=== PATIENT | female | born 1990 | race Caucasian/White ===

== ENCOUNTER 2023-09-19 00:21 | Emergency (ER) | payer OTHER, SELFPAY ==
[2023-09-19 00:26] VITALS: BP 115/78; PULSE 99; TEMP 36.9; O2SAT 99; BMI 100.8
--- NOTE | 2023-09-19 00:29 | ED_ITS ---
HPI - Skin/Abscess/Foreign Bdy General Chief complaint: Skin/Abscess/Foreign Body Stated complaint: RT FOOT POSS INSECT BITE Time Seen by Provider: 09/19/23 00:25 History of Present Illness HPI narrative: patient was at [facility] 4 days ago and was in the water. Developed focal area of irritation dorsum right foot. She now has superficial raised erythematous blister type lesion with red streak into her watts area and can feel pain into her thigh. Feels tired. No fever, nausea or vomiting. Related Data Home Medications ?Medication ?Instructions ?Recorded ?Confirmed No Known Home Medications 09/19/23 09/19/23 Allergies Allergy/AdvReac Type Severity Reaction Status Date / Time AMOXIL Allergy Swelling Uncoded 09/19/23 00:32 of Lip/Tongue/Throat Review of Systems 2 ROS0 Status of ROS 10 or more systems reviewed and unremark able except as noted in history and below Exam Constitutional Vital Signs, click to edit/add: Last Vital Signs Temp 98.4 F 09/19/23 00:26 Pulse 99 H 09/19/23 00:26 Resp 16 09/19/23 00:26 BP 115/78 09/19/23 00:26 Pulse Ox 99 09/19/23 00:26 O2 Del Method Room Air 09/19/23 00:26 Common normals: no apparent distress, average body habitus, oriented x3, no limitations, healthy appearing, alert and well nourished [facility] Common normals: normocephalic and head/scalp atraumatic Eye Common normals: EOMs intact bilaterally and conjunctivae normal Respiratory Common normals: normal respiratory effort, no retractions, no use of accessory muscles and clear to auscultation bilaterally Cardio Common normals: regular rate, regular rhythm, S1 normal heart sound and S2 normal heart sound GI Common normals: Normal to inspection, nondistended, normoactive bowel sounds present, soft to palpation and non-tender Extremity Common normals: full ROM Extremity image (front): 2 1. erythematous blood blister appearing lesion 2cm with red streak Neuro Common normals: oriented x3, CN's II-XII intact bilaterally, moves all extremities and no focal motor deficits Psych Appearance: grossly normal Course Vital Signs Vital signs: Vital Signs Temperature 98.4 F 09/19/23 00:26 Pulse Rate 99 H 09/19/23 00:26 Respiratory Rate 16 09/19/23 00:26 Blood Pressure 115/78 09/19/23 00:26 Pulse Oximetry 99 09/19/23 00:26 Oxygen Delivery Method Room Air 09/19/23 00:26 Temperature 98.4 F 09/19/23 00:26 Pulse Rate 99 H 09/19/23 00:26 Respiratory Rate 16 09/19/23 00:26 Blood Pressure 115/78 09/19/23 00:26 Pulse Oximetry 99 09/19/23 00:26 Oxygen Delivery Method Room Air 09/19/23 00:26 MDM - Skin/Abscess/Foreign Bdy MDM Narrative Medical decision making narrative: patient presents with what appears to be an insect bite dorsum left foot that occurred while she was in the beach at [facility] 4 days ago. Has raised blood blister lesion on the foot and red streak to the tibia. no fever. she does have leukocytosis. Treated with clindamycin and doxycycline and discharged and informed of the importance of close followup and to return if red streak advances despite her antibiotic treatment. Lab Data Labs: Lab Results 09/19/23 Range/Units 00:35 WBC 16.3 H (4.0-11.0) 10^3/uL RBC 4.30 (4.20-5.40) 10^6/uL Hgb 11.7 L (12.0-16.0) g/dL Hct 36.1 (36.0-48.0) % MCV 84.0 (81.0-99.0) fL MCH 27.2 (26.7-34.0) pg MCHC 32.4 (29.9-35.2) g/dL RDW 14.2 (11.0-15.0) % Plt Count 308 (150-450) 10^3/uL MPV 10.4 (9.5-13.5) fL Neut % (Auto) 77.2 H (43.0-75.0) % Lymph % (Auto) 14.9 L (20.5-60.0) % [place] % (Auto) 5.6 (1.7-12.0) % Eos % (Auto) 1.5 (0.9-7.0) % Baso % (Auto) 0.2 (0.2-2.0) % Neut # (Auto) 12.6 H (1.4-6.5) 10^3/uL Lymph # (Auto) 2.4 (1.2-3.8) 10^3/uL [place] # (Auto) 0.9 H (0.3-0.8) 10^3/uL Eos # (Auto) 0.2 (0.0-0.7) 10^3/uL Baso # (Auto) 0.0 (0.0-0.1) 10^3/uL Abs Immat Gran (auto) 0.10 H (0.00-0.03) 10^3/uL Imm/Tot Granulo (auto) 0.6 H (0.0-0.5) % Sodium 137 (136-145) mmol/L Potassium 3.6 (3.5-5.1) mmol/L Chloride 103 (98-107) mmol/L Carbon Dioxide 28.4 (21.0-32.0) mmol/L Anion Gap 9.2 BUN 9.0 (7.0-18.0) mg/dL Creatinine 0.82 (0.55-1.02) mg/dL Est GFR ( Amer) >60 (>=60) Est GFR (Non-Af Amer) >60 (>=60) BUN/Creatinine Ratio 11.0 Glucose 100 (74-106) mg/dL Lactate 1.5 (0.4-2.0) mmol/L Calcium 8.8 (8.5-10.1) mg/dL Discharge Plan Discharge Stand Alone Forms: Portal Instructions Chief Complaint: Skin/Abscess/Foreign Body Clinical Impression: Insect bites, Cellulitis Patient Disposition: Home, Self-Care Prescriptions / Home Meds: No Action No Known Home Medications Print Language: Slovenian Instructions: Cellulitis (ED), Insect Bite or Sting (ED) Additional Instructions: follow up with your doctor in 1-2 days for recheck. Return if red streak advances as discussed Referrals: Physician,Non-Staff, MD [Primary Care Provider] - 1 week
[2023-09-19 00:43] LABS: Basophils Percent Auto 0.2 % (0.2-2.0); Eosinophils Absolute Auto 0.2 10^3/uL (0.0-0.7); Eosinophils Percent Auto 1.5 % (0.9-7.0); Hematocrit 36.1 % (36.0-48.0); Hemoglobin 11.7 g/dL (12.0-16.0); Immature Granulocytes Pct Auto 0.6 % (0.0-0.5); Lymphocytes Absolute Auto 2.4 10^3/uL (1.2-3.8); Lymphocytes Percent Auto 14.9 % (20.5-60.0); Mean Corpuscular HGB Conc 32.4 g/dL (29.9-35.2); Mean Corpuscular Hemoglobin 27.2 pg (26.7-34.0); Mean Platelet Volume 10.4 fL (9.5-13.5); Monocytes Absolute Auto 0.9 10^3/uL (0.3-0.8); Monocytes Percent Auto 5.6 % (1.7-12.0); Neutrophils Absolute Auto 12.6 10^3/uL (1.4-6.5); Neutrophils Percent Auto 77.2 % (43.0-75.0); Platelet Count 308 10^3/uL (150-450); Red Cell Distribution Width 14.2 % (11.0-15.0); White Blood Count 16.3 10^3/uL (4.0-11.0)
[2023-09-19] MEDS: 0.9 % SODIUM CHLORIDE 1,000 ML 999 ML IV (00:46)
[2023-09-19] MEDS: DOXYCYCLINE MONOHYDRATE 100 MG CAPSULE PO ×2 (00:48→01:40)
[2023-09-19 00:50] LABS: Anion Gap 9.2; Calcium 8.8 mg/dL (8.5-10.1); Carbon Dioxide 28.4 mmol/L (21.0-32.0); Chloride 103 mmol/L (98-107); Estimated GFR (African America >60 (>=60); Estimated GFR (Non-African Ame >60 (>=60); Glucose 100 mg/dL (74-106); Potassium 3.6 mmol/L (3.5-5.1); Sodium 137 mmol/L (136-145)
[2023-09-19 00:59] LABS: Lactate/Lactic Acid 1.5 mmol/L (0.4-2.0)
[2023-09-19] MEDS: CLINDAMYCIN PHOSPHATE/D5W 900 MG/50 ML PIGGYBACK 100 MG IV (01:28)
[2023-09-19] MEDS: CLINDAMYCIN HCL 150 MG CAPSULE 300 MG PO (01:39)
== END 2023-09-19 01:53 | disposition home or self-care (01) ==
PROVIDERS: Emergency Provider Internal Medicine
DX: S90.862A Insect bite (nonvenomous), left foot, initial encounter (principal); L03.116 Cellulitis of left lower limb; W57.XXXA Bitten or stung by nonvenomous insect and other nonvenomous arthropods, initial encounter
CPT/HCPCS: 36415; 80048; 83605; 85025; 96374; 99284; J0736

== ENCOUNTER 2023-09-20 13:02 | Emergency (ER) | payer OTHER, SELFPAY ==
[2023-09-20 13:17] VITALS: BP 116/80; PULSE 107; TEMP 37.1; O2SAT 100; BMI 45.7
--- NOTE | 2023-09-20 13:30 | ED.SKABFB1 ---
HPI - Skin/Abscess/Foreign Bdy General Chief complaint: Skin/Abscess/Foreign Body Stated complaint: SPIDER BITE Time Seen by Provider: 09/20/23 13:23 Mode of arrival: walk-in History of Present Illness HPI narrative: Patient is a 33-year-old female who returns to the emergency department for continued Redness, swelling and drainage from the dorsum of the right foot. She was seen in this emergency department 2 days ago after a 4-day history of swelling and redness that she presumed was from an insect bite on the dorsum of the right foot. She was treated with IV antibiotics for red streaking that was going up the foot and leg at that time. She was prescribed clindamycin and doxycycline. She states her pharmacy was closed yesterday and she has not been able to get the prescriptions today so she has not started the outpatient prescriptions that she was given for antibiotic coverage. She states in the last day the opening of the dorsum of the foot in the center of the bite has opened with serosanguineous drainage. She has had no objective fevers or vomiting. She is not concerned for . Related Data Home Medications ?Medication ?Instructions ?Recorded ?Confirmed clindamycin HCl 300 mg capsule mg 09/20/23 doxycycline hyclate 100 mg capsule mg 09/20/23 Allergies Allergy/AdvReac Type Severity Reaction Status Date / Time AMOXIL Allergy Swelling Uncoded 09/19/23 00:32 of Lip/Tongue/Throat Review of Systems ROS Constitutional Denies: fever or chills Ears, nose, mouth, and throat Denies: throat pain Respiratory Denies: shortness of breath Gastrointestinal Denies: nausea or vomiting Musculoskeletal Denies: back pain Integumentary/Breast Reports: redness and skin pain; Denies: rash Hematologic/Lymphatic Denies: easy bruising or easy bleeding Exam Narrative Exam Narrative: Gen.: Awake, alert, in no distress Head: Normocephalic, atraumatic ENT: Moist mucous membranes Respiratory: No respiratory distress Extremities: Moves extremities equally, 2 cm raised/blistered area to the dorsum of the right foot that is open centrally with serosanguineous drainage. No purulence or fluctuance noted. 2 to 3 cm of surrounding blanching erythema. Faint red streaking noted to the dorsum of the foot to the ankle. Right calf is soft, nontender with no redness or induration Psych: Normal mood and affect Neuro: No focal neuro deficit Skin: Warm, dry Constitutional Vital Signs, click to edit/add: Last Vital Signs Temp 98.7 F 09/20/23 13:17 Pulse 107 H 09/20/23 13:17 Resp 20 09/20/23 13:17 BP 116/80 09/20/23 13:17 Pulse Ox 100 09/20/23 13:17 Course Vital Signs Vital signs: Vital Signs Temperature 98.7 F 09/20/23 13:17 Pulse Rate 107 H 09/20/23 13:17 Respiratory Rate 20 09/20/23 13:17 Blood Pressure 116/80 09/20/23 13:17 Pulse Oximetry 100 09/20/23 13:17 Temperature 98.7 F 09/20/23 13:17 Pulse Rate 107 H 09/20/23 13:17 Respiratory Rate 20 09/20/23 13:17 Blood Pressure 116/80 09/20/23 13:17 Pulse Oximetry 100 09/20/23 13:17 MDM - Skin/Abscess/Foreign Bdy MDM Narrative Medical decision making narrative: CRP and sed rates are still elevated, however white blood cell count has improved. Patient with no circumferential erythema, no calf swelling or redness. She was strongly encouraged to take the clindamycin and doxycycline that was prescribed. Regular wound care encouraged. Follow-up with PCP and return to the ER if symptoms change or worsen. IV clindamycin given in the ER as the patient has not had antibiotics for 2 days. Medical Records Attestation: I reviewed the patient's medical records. Lab Data Attestation: I reviewed the patient's lab results. Labs: Lab Results 09/20/23 Range/Units 13:40 WBC 12.3 H (4.0-11.0) 10^3/uL RBC 4.60 (4.20-5.40) 10^6/uL Hgb 12.4 (12.0-16.0) g/dL Hct 39.6 (36.0-48.0) % MCV 86.1 (81.0-99.0) fL MCH 27.0 (26.7-34.0) pg MCHC 31.3 (29.9-35.2) g/dL RDW 14.2 (11.0-15.0) % Plt Count 332 (150-450) 10^3/uL MPV 10.7 (9.5-13.5) fL Neut % (Auto) 75.6 H (43.0-75.0) % Lymph % (Auto) 17.7 L (20.5-60.0) % [place] % (Auto) 3.4 (1.7-12.0) % Eos % (Auto) 2.0 (0.9-7.0) % Baso % (Auto) 0.3 (0.2-2.0) % Neut # (Auto) 9.3 H (1.4-6.5) 10^3/uL Lymph # (Auto) 2.2 (1.2-3.8) 10^3/uL [place] # (Auto) 0.4 (0.3-0.8) 10^3/uL Eos # (Auto) 0.2 (0.0-0.7) 10^3/uL Baso # (Auto) 0.0 (0.0-0.1) 10^3/uL Abs Immat Gran (auto) 0.12 H (0.00-0.03) 10^3/uL Imm/Tot Granulo (auto) 1.0 H (0.0-0.5) % ESR 69 H (<=20) mm/hr C-Reactive Protein 4.34 H (<=0.50) mg/dL Discharge Plan Discharge Stand Alone Forms: Portal Instructions Chief Complaint: Skin/Abscess/Foreign Body Clinical Impression: Cellulitis Patient Disposition: Home, Self-Care Time of Disposition Decision: 14:21 Condition: Good Prescriptions / Home Meds: No Action doxycycline hyclate 100 mg capsule clindamycin HCl 300 mg capsule Print Language: B[place]udian Instructions: Cellulitis (ED) Referrals: Physician,Non-Staff, MD [Primary Care Provider] - 1 week
[2023-09-20] MEDS: CLINDAMYCIN PHOSPHATE/D5W 900 MG/50 ML PIGGYBACK 100 MG IV (13:42)
[2023-09-20 13:51] LABS: Basophils Percent Auto 0.3 % (0.2-2.0); Eosinophils Absolute Auto 0.2 10^3/uL (0.0-0.7); Hematocrit 39.6 % (36.0-48.0); Hemoglobin 12.4 g/dL (12.0-16.0); Immature Granulocytes Abs Auto 0.12 10^3/uL (0.00-0.03); Lymphocytes Absolute Auto 2.2 10^3/uL (1.2-3.8); Lymphocytes Percent Auto 17.7 % (20.5-60.0); Mean Corpuscular HGB Conc 31.3 g/dL (29.9-35.2); Mean Corpuscular Volume 86.1 fL (81.0-99.0); Mean Platelet Volume 10.7 fL (9.5-13.5); Monocytes Absolute Auto 0.4 10^3/uL (0.3-0.8); Monocytes Percent Auto 3.4 % (1.7-12.0); Neutrophils Absolute Auto 9.3 10^3/uL (1.4-6.5); Neutrophils Percent Auto 75.6 % (43.0-75.0); Platelet Count 332 10^3/uL (150-450); Red Cell Distribution Width 14.2 % (11.0-15.0); White Blood Count 12.3 10^3/uL (4.0-11.0)
[2023-09-20 14:07] LABS: C Reactive Protein 4.34 mg/dL (<=0.50)
[2023-09-20 14:10] LABS: Erythrocyte Sedimentation Rate 69 mm/hr (<=20)
== END 2023-09-20 14:27 | disposition home or self-care (01) ==
PROVIDERS: Physician Assistant; Emergency Provider Emergency Medicine Emergency Medical Services
DX: L03.115 Cellulitis of right lower limb (principal)
CPT/HCPCS: 36415; 85025; 85652; 86140; 96365; 99284; J0736